=== PATIENT | male | born 1995 | race Caucasian/White ===

== ENCOUNTER 2018-02-10 22:14 | Emergency (ER) | payer OTHER, MEDICAID ==
[2018-02-10] MEDS: HYDROCODONE/APAP (10/325) TAB PO (23:29)
[2018-02-10] MEDS: ONDANSETRON (ODT) 4 MG TAB ODT (23:29)
== END 2018-02-11 02:51 | disposition home or self-care (01) ==
LOC: E/R 02-11 02:51
DX: S02.2XXA Fracture of nasal bones, initial encounter for closed fracture (principal); R07.9 Chest pain, unspecified; Y04.8XXA Assault by other bodily force, initial encounter; Y92.9 Unspecified place or not applicable
CPT/HCPCS: 70450; 70480; 71045; 73110-RT; 73562; 99285-25

== ENCOUNTER 2018-03-18 14:41 | Day surgery (SDC) | payer OTHER ==
[~2018-03-18 14:41] MED LIST: CEFAZOLIN 1 GM/50 ML (PMX) 50 ML IVPB; LIDOCAINE 2% (SDV) 5 ML INJ
[2018-03-18] MEDS ORDERED: LIDOCAINE 1%/EPI 30 ML INJ (16:13)
[2018-03-18] MEDS ORDERED: BACITRACIN/POLYMYXIN 28.35 GM OINT TOP (16:14)
[2018-03-18] MEDS ORDERED: FENTAnyl 50 MCG/ML VIAL IV ×3 (16:30)
[2018-03-18] MEDS ORDERED: MEPERIDINE 25 MG INJ IV (16:30)
[2018-03-18] MEDS ORDERED: MIDAZOLAM 1 MG/ML 2 ML INJ IV (16:30)
[2018-03-18] MEDS ORDERED: OXYCODONE/ACETAMINOPHEN (5/325) TAB PO ×2 (16:30)
[2018-03-18] MEDS ORDERED: DIPHENHYDRAMINE 50 MG INJ IV (16:30)
[2018-03-18] MEDS ORDERED: ONDANSETRON 4 MG INJ IV (16:30)
[2018-03-18] MEDS ORDERED: HYDROmorphONE (0.2 MG/ML) 10ML SYG IV ×3 (16:30)
[2018-03-18] MEDS ORDERED: LABETALOL HCL 20MG INJ IV (16:30)
[2018-03-18] MEDS ORDERED: EPHEDrine SULFATE 50 MG/5 ML SYG IV (16:30)
[2018-03-18] MEDS ORDERED: ALBUTEROL 0.083% (NEB) 2.5 MG/3 ML AMP HHN (16:30)
[2018-03-18] MEDS ORDERED: KETOROLAC 30 MG INJ IV (16:30)
[2018-03-18] MEDS ORDERED: METOCLOPRAMIDE 10 MG INJ IV (16:30)
[2018-03-18] MEDS ORDERED: hydrALAzine 20 MG INJ IV (16:30)
[2018-03-18] MEDS ORDERED: CEFAZOLIN 1 GM INJ (16:35)
[2018-03-18] MEDS ORDERED: ROCURONIUM 50 MG INJ (16:35)
[2018-03-18] MEDS ORDERED: ONDANSETRON 4 MG INJ (16:35)
[2018-03-18] MEDS ORDERED: DEXAMETHASONE 4 MG/ML 1 ML INJ (16:35)
[2018-03-18] MEDS ORDERED: PROPOFOL 20 ML (16:35)
[2018-03-18] MEDS: COCAINE 4% 4 ML TOP (16:40)
[2018-03-18] MEDS ORDERED: SUGAMMADEX SODIUM 200 MG/2 ML VIAL IV (16:49)
== END 2018-03-18 18:32 | disposition home or self-care (01) ==
LOC: SDS 14:41
DX: S02.2XXA Fracture of nasal bones, initial encounter for closed fracture (principal); M95.0 Acquired deformity of nose
CPT/HCPCS: 21330